=== PATIENT | male | born 1975 | race Caucasian/White ===

== ENCOUNTER → 2023-12-20 17:01 | Outpatient (REF) | payer OTHER, SELFPAY | LOC: RAD 17:01 | PROVIDERS: ATTENDING PHYSICIAN Internal Medicine Hematology & Oncology; FAMILY PHYSICIAN Nurse Practitioner Family | DX: C62.11 Malignant neoplasm of descended right testis (principal) | CPT/HCPCS: 74176 ==

== ENCOUNTER → 2024-12-06 08:18 | Outpatient (REF) | payer OTHER, SELFPAY | LOC: RAD 08:18 | PROVIDERS: ATTENDING PHYSICIAN Internal Medicine Hematology & Oncology | DX: C62.11 Malignant neoplasm of descended right testis (principal) | CPT/HCPCS: 74176 ==